=== PATIENT | male | born 1995 | race Caucasian/White ===

== ENCOUNTER 2024-03-21 22:49 | Emergency (ER) | payer MEDICAID, OTHER ==
[~2024-03-21] VITALS: Ht 175.3 cm; Wt 95.5 kg
[2024-03-21 22:55] VITALS: BP 146/90; PULSE 62; RESP 16; TEMP 98
[2024-03-22] MEDS ORDERED: IBUPROFEN 600 MG TABLET PO ONE (01:15)
[2024-03-22] MEDS ORDERED: IBUP-1554 PO (03:31)
== END 2024-03-22 06:10 | disposition home or self-care (01) ==
LOC: EMS 22:49
DX: S02.2XXA Fracture of nasal bones, initial encounter for closed fracture (principal); S63.602A Unspecified sprain of left thumb, initial encounter; S00.12XA Contusion of left eyelid and periocular area, initial encounter; Y08.89XA Assault by other specified means, initial encounter; Y93.89 Activity, other specified; Y92.89 Other specified places as the place of occurrence of the external cause; Y99.8 Other external cause status
CPT/HCPCS: 70486; 99284; 73110-TC; 73130-TC; Z7502